=== PATIENT | female | born 1965 | race African-American/Black ===

== ENCOUNTER 2024-05-10 13:06 | Emergency (ER) | payer BC, SELFPAY ==
[2024-05-10 13:43] VITALS: BP 145/62; PULSE 73; RESP 16; TEMP 36.8; O2SAT 99
--- NOTE | 2024-05-10 15:05 | ED.EYEPROB ---
HPI - Eye Problem General Chief complaint: Eye Problems Stated complaint: right eye runny Time Seen by Provider: 05/10/24 14:55 History of Present Illness HPI Narrative: Patient presents with complaints of right eye watering since April 21, 2024. She reports that she knows the exact date that symptoms began because she started a new job that day. She did not have this problem prior to starting her new job. She reports that she has been in a different urgent care since the onset of her symptoms, has been using Pataday as directed at that Urgent Care with poor results. She further shares that she has had another urgent care visit, she reports that this urgent care visit ended with Zyrtec being recommended. She reports that when she was taking Zyrtec she had very good results. She states that she has an eye appointment on May 25, 2024. She denies any pain. She denies any injury or trauma. She denies any visual disturbance. Related Data Allergies Allergy/AdvReac Type Severity Reaction Status Date / Time No Known Allergies Allergy Verified 05/10/24 15:10 Review of Systems Review of Systems: All systems reviewed & are unremarkable except as noted in HPI and below Constitutional: Constitutional: Reports no additional constitutional complaints Eyes: Eyes: Reports as per HPI and Reports no additional eye complaints ENT: Reports system reviewed and no additional complaints, except as documented and Reports as per HPI Cardiovascular: Cardiovascular: Reports as per HPI and Reports no additional cardiovascular complaints Respiratory: Respiratory: Reports no additional respiratory complaints Gastrointestinal: Gastrointestinal: Reports no additional gastrointestinal complaints Exam Const: General: cooperative, no acute distress, alert and awake Orientation/consciousness: oriented to person, oriented to place and oriented to time HENMT: Head: normal to inspection Ears: external ears normal and TM's normal bilaterally Mouth: Yes moist mucous membranes Eyes: General: appearance normal, both eyes and all related structures Eyelids: eyelids normal Sclera: sclerae normal Cornea: corneas normal Pupils: Equal, round and reactive pupils present Resp: Effort & Inspection: normal respiratory effort and able to speak in complete sentences Auscultation: clear to auscultation bilaterally, no crackles, no rales, no rhonchi and no wheezes Cardio: Palpation: normal PMI Rate: regular rate Rhythm: regular rhythm Heart sounds: S1 normal heart sound present and S2 normal heart sound present Neuro: General: oriented to person, oriented to place and oriented to time Cranial nerves: Yes CN's II-XII intact bilaterally Psych: Appearance: grossly normal Thought process: Normal thought process present Insight: Good insight present (Psych) Judgement: Good judgement present (Psych) Course Course Level of Care: Express Care Visit Vital Signs Vital signs: Vital Signs Temperature 98.3 F 05/10/24 13:43 Pulse Rate 73 05/10/24 13:43 Respiratory Rate 16 05/10/24 13:43 Blood Pressure 145/62 H 05/10/24 13:43 Pulse Oximetry 99 05/10/24 13:43 Oxygen Delivery Room Air 05/10/24 13:43 Temperature 98.3 F 05/10/24 13:43 Pulse Rate 73 05/10/24 13:43 Respiratory Rate 16 05/10/24 13:43 Blood Pressure 145/62 H 05/10/24 13:43 Pulse Oximetry 99 05/10/24 13:43 Oxygen Delivery Room Air 05/10/24 13:43 MDM - Eye Problem MDM Narrative Medical decision making narrative: Patient with complaints of excessive right eye watering since April 21. No pain, no visual disturbance, no discharge. No abnormalities on exam. She does state that symptoms subsided when she took Zyrtec, prescription written for Zyrtec. Patient prefers this to buying it [id number]. She is urged to keep her eye appointment that is scheduled for later in the month. Discharge instructions reviewed with patient, as well as provided in
== END 2024-05-10 15:11 | disposition home or self-care (01) ==
PROVIDERS: Emergency Provider Nurse Practitioner Family
DX: T78.40XA Allergy, unspecified, initial encounter (principal)
CPT/HCPCS: 99203; G0463